=== PATIENT | male | born 1975 ===

== ENCOUNTER 2018-06-18 15:55 | Emergency (ER) | payer BC ==
[2018-06-18 16:41] VITALS: BMI 31.0
[2018-06-18 16:42] VITALS: RESP 18; TEMP 97.6
[2018-06-18] MEDS ORDERED: Sodium Chloride 0.9% 1,000 ML IV STA (17:04)
--- NOTE | 2018-06-18 17:52 | ED PDOC ---
Arrival/HPI - General Chief Complaint: Abdominal Pain Time Seen by Provider: 06/18/18 15:56 Historian: Patient - History of Present Illness Narrative History of Present Illness (Text): 06/18/18 17:52 42yo male with past medical history of IBS and hypertension who present with complaint of diffuse abdominal pain x 5days. States pain became worse today with nausea and bloating causing him to feel lightheaded. Notes chronic history of the pain, but it was today today. States he have appointment with his GI tomorrow. States he takes Nexium and has been taking it. Reports normal BM today. Denies vomiting, fever, chills, melena, hematochezia, urinary symptoms, any other complaint. Past Medical History - Provider Review Nursing Documentation Reviewed: Yes - Infectious Disease Hx of Infectious Diseases: None - Cardiac Hx Cardiac Disorders: Yes Hx Hypertension: Yes - Pulmonary Hx Respiratory Disorders: No - Neurological Hx Neurological Disorder: No - HEENT Hx HEENT Disorder: No - Renal Hx Renal Disorder: No - Endocrine/Metabolic Hx Endocrine Disorders: No - Hematological/Oncological Hx Blood Disorders: No - Integumentary Hx Dermatological Disorder: No - Musculoskeletal/Rheumatological Hx Musculoskeletal Disorders: No - Gastrointestinal Hx Gastrointestinal Disorders: Yes Hx Gastritis: Yes Hx Irritable Bowel: Yes - Genitourinary/Gynecological Hx Genitourinary Disorders: No - Psychiatric Hx Psychophysiologic Disorder: No Hx Substance Use: No Family/Social History - Physician Review Nursing Documentation Reviewed: Yes Family/Social History: Unknown Family HX Smoking Status: Never Smoked Hx Alcohol Use: No Hx Substance Use: No Allergies/Home Meds Allergies/Adverse Reactions: Allergies No Known Allergies Allergy (Verified 06/18/18 16:45) Home Medications: Home Meds Medication Instructions Recorded Confirmed Esomeprazole Magnesium [Nexium] 5 mg PO DAILY 06/18/18 06/18/18 Review of Systems - Physician Review All systems were reviewed & negative as marked: Yes - Review of Systems Constitutional: Normal Eyes: Normal ENT: Normal Respiratory: Normal Cardiovascular: Normal Gastrointestinal: Abdominal Pain, Nausea. absent: Constipation, Diarrhea, Vomiting, Hematochezia, Hematemesis Genitourinary Male: Normal Musculoskeletal: Normal Skin: Normal Neurological: Normal Endocrine: Normal Hemo/Lymphatic: Normal Psychiatric: Normal Physical Exam Vital Signs Reviewed: Yes Vital Signs Temp Pulse Resp BP Pulse Ox 06/18/18 16:41 97.6 F 73 18 146/97 H 98 Temperature: Afebrile Blood Pressure: Normal Pulse: Regular Respiratory Rate: Normal Appearance: Positive for: Well-Appearing, Non-Toxic, Comfortable Pain Distress: None Mental Status: Positive for: Alert and Oriented X 3 - Systems Exam Head: Present: Atraumatic, Normocephalic Pupils: Present: PERRL Extroacular Muscles: Present: EOMI Conjunctiva: Present: Normal Mouth: Present: Moist Mucous Membranes Neck: Present: Normal Range of Motion Respiratory/Chest: Present: Clear to Auscultation, Good Air Exchange. No: Respiratory Distress, Accessory Muscle Use Cardiovascular: Present: Regular Rate and Rhythm, Normal S1, S2. No: Murmurs Abdomen: Present: Tenderness (Right sided lateral to the umbilical area), Normal Bowel Sounds. No: Distention, Peritoneal Signs, Rebound, Guarding, McBurney's Point Tender, Rovsing's Sign Present Back: Present: Normal Inspection Upper Extremity: Present: Normal Inspection. No: Cyanosis, Edema Lower Extremity: Present: Normal Inspection. No: Edema Neurological: Present: GCS=15, CN II-XII Intact, Speech Normal Skin: Present: Warm, Dry, Normal Color. No: Rashes Psychiatric: Present: Alert, Oriented x 3, Normal Insight, Normal Concentration Medical Decision Making ED Course and Treatment: 06/18/18 19:26 42yo male who present with stated history. He was comfortable in emergency department . Labs was ordered, reviewed and unremarkable result was DW the pt. He have appointment with his GI tomorrow and was advised to follow up with the GI. He is on Nexium at home. - Medication Orders Current Medication Orders: Sodium Chloride (Sodium Chloride 0.9%) 1,000 mls @ 1,000 mls/hr IV .Q1H STA Stop: 06/18/18 18:03 Last Admin: 06/18/18 17:40 Dose: 1,000 mls/hr eMAR Start Stop Document 06/18/18 17:40 KV (Rec: 06/18/18 17:42 KV [facility] [id number]) Intravenous Solution Start Date 06/18/18 Start Time 17:42 Discontinued Medications Famotidine (Pepcid) 20 mg IVP STAT STA Stop: 06/18/18 17:05 Last Admin: 06/18/18 17:42 Dose: 20 mg IVP Administration Document 06/18/18 17:42 KV (Rec: 06/18/18 17:42 KV [facility] [id number]) Charges for Administration # of IVP Administrations 1 Ondansetron HCl (Zofran Inj) 4 mg IVP STAT STA Stop: 06/18/18 17:05 Last Admin: 06/18/18 17:42 Dose: 4 mg IVP Administration Document 06/18/18 17:42 KV (Rec: 06/18/18 17:42 KV [facility] [id number]) Charges for Administration # of IVP Administrations 1 Disposition/Present on Arrival - Present on Arrival Any Indicators Present on Arrival: No History of DVT/PE: No History of Uncontrolled Diabetes: No Urinary Catheter: No History of Decub. Ulcer: No History Surgical Site Infection Following: None - Disposition Have Diagnosis and Disposition been Completed?: Yes Diagnosis: Abdominal pain Disposition: HOME/ ROUTINE Disposition Time: 19:00 Patient Plan: Discharge Condition: STABLE Discharge Instructions (ExitCare): Acute Abdomen (Belly Pain), Adult (DC) Additional Instructions: Follow up with your Doctor Return to emergency department for any new or worsening symptoms Referrals: Rudi SEGUNDO,MD Karolina [Primary Care Provider] - Follow up with primary Forms: [employer] (Salvadorean)
[2018-06-18 17:58] LABS: BASO # 0.02 K/mm3 (0.0-2.0); BASO % 0.2 % (0.0-3.0); EOS # 0.1 (0.0-0.7); EOS % 0.6 % (1.5-5.0); HEMOGLOBIN 14.1 g/dL (14.0-18.0); LYMPH # 2.9 (1.2-3.4); LYMPH % 30.6 % (22.0-35.0); MEAN CELL VOLUME 79.7 fl (80.0-105.0); MEAN CORPUSCULAR HEMOGLOBIN 26.6 pg (25.0-35.0); MEAN CORPUSCULAR HGB CONC 33.3 g/dl (31.0-37.0); MEAN PLATELET VOLUME 9.4 fl (7.0-11.0); MONO # 0.6 (0.1-0.6); MONO % 6.2 % (1.0-6.0); RBC 5.31 10^6/uL (3.5-6.1); WHITE BLOOD COUNT 9.5 10^3/uL (4.5-11.0)
[2018-06-18 18:04] LABS: INR 1.15; PARTIAL THROMBOPLASTIN TIME 32.4 Seconds (26.9-38.3); PROTHROMBIN TIME 12.8 SECONDS (9.4-12.5)
[2018-06-18 18:12] LABS: ALB/GLOB RATIO 1.1 (1.1-1.8); ALBUMIN 4.7 g/dL (3.0-4.8); ALT/SGPT 49 U/L (7-56); AST/SGOT 35 U/L (17-59); BLOOD UREA NITROGEN 18 mg/dL (7-21); CALCIUM 10.2 mg/dL (8.4-10.5); GFR NON-AFRICAN AMERICAN > 60; LIPASE 49 U/L (23-300)
[2018-06-18 18:36] VITALS: BP 140/93; PULSE 69; O2SAT 100
[2018-06-18 18:47] LABS: URINE BILIRUBIN NEGATIVE (NEGATIVE); URINE BLOOD NEGATIVE (NEGATIVE); URINE GLUCOSE (UA) NEGATIVE (NEGATIVE); URINE LEUKOCYTE ESTERASE NEGATIVE Leu/uL (NEGATIVE); URINE PROTEIN NEGATIVE mg/dL (<30 mg/dL); URINE UROBILINOGEN 0.2 E.U./dL (<1 E.U./dL)
[2018-06-18 19:00] LABS: URINE APPEARANCE CLEAR (CLEAR); URINE COLOR YELLOW (YELLOW)
== END 2018-06-18 19:14 | disposition home or self-care (01) ==
LOC: ED 15:55
DX: R10.84 Generalized abdominal pain (principal); I10 Essential (primary) hypertension; K58.9 Irritable bowel syndrome, unspecified
CPT/HCPCS: 80053; 81003; 83690; 83735; 85025; 85610; 85730; 96374; 96375; 99283; J2405; J7030